=== PATIENT | male | born 1985 | race Caucasian/White ===

== ENCOUNTER 2023-03-23 13:55 | Day surgery (SDC) | payer BC ==
[~2023-03-23] VITALS: Ht 193 cm; Wt 123.8 kg
[2023-03-23 16:48] LABS: BASO # 0.1 10^3/uL (0.0-0.2); EOS % 0.4 % (0.0-3.0); HEMOGLOBIN 15.4 g/dl (13.5-17.5); LYMPH # 1.2 10^3/uL (1.5-5.0); LYMPH % 16.5 % (24.0-44.0); MEAN CORPUSCULAR HEMOGLOBIN 30.6 pg (27.0-33.0); MEAN CORPUSCULAR HGB CONC 33.5 g/dl (32.0-36.5); MEAN CORPUSCULAR VOLUME 91.3 fl (80.0-96.0); MONO # 0.6 10^3/uL (0.0-0.8); NEUTROPHILS # 5.2 10^3/uL (1.5-8.5); NEUTROPHILS % 72.5 % (36.0-66.0); PLATELET COUNT, AUTOMATED 215 10^3/uL (150-450); RED BLOOD COUNT 5.04 10^6/uL (4.30-6.10); WHITE BLOOD COUNT 7.1 10^3/uL (4.0-10.0)
[2023-03-23 17:21] LABS: AMPHETAMINES LEVEL URINE NEGATIVE (NEGATIVE); BARBITURATES URINE NEGATIVE (NEGATIVE); BENZODIAZEPINES URINE NEGATIVE (NEGATIVE); CANNABINOIDS URINE NEGATIVE (NEGATIVE); COCAINE METABOLITE URINE NEGATIVE (NEGATIVE); METHADONE URINE NEGATIVE (NEGATIVE); OPIATES URINE NEGATIVE (NEGATIVE); PHENCYCLIDINE URINE NEGATIVE (NEGATIVE)
[2023-03-23 17:22] LABS: INR 0.99; PROTHROMBIN TIME 13.3 SECONDS (12.5-14.5)
[2023-03-23 17:23] LABS: PARTIAL THROMBOPLASTIN TIME 25.5 SECONDS (24.8-34.2)
[2023-03-23 17:24] LABS: BLOOD UREA NITROGEN 15 MG/DL (9-23); CALCIUM LEVEL 8.9 MG/DL (8.5-10.1); CARBON DIOXIDE LEVEL 28 MMOL/L (20-31); CHLORIDE LEVEL 106 MMOL/L (98-107); GLOMERULAR FILTRATION RATE > 60.0 (>60); GLUCOSE, FASTING 97 MG/DL (60-100); MAGNESIUM LEVEL 2.1 MG/DL (1.8-2.4); SODIUM LEVEL 140 MMOL/L (136-145)
[2023-03-23 17:26] LABS: FREE T4 1.02 NG/DL (0.89-1.76); THYROID STIMULATING HORMONE 2.051 uIU/ML (0.55-4.78)
[2023-03-23 17:28] LABS: RSV AMPLIFICATION NEGATIVE (NEGATIVE)
[2023-03-23] MEDS ORDERED: ceFAZolin SOD 1 GM in D5W MINI-BAG PLUS 50 ML IV ONE (18:00)
[2023-03-23] MEDS ORDERED: NS 1,000 ML IV SCH (18:00)
[2023-03-23] MEDS ORDERED: ceFAZolin SOD 2 GM in IV 1 EA IV ONE (18:00)
[2023-03-23] MEDS ORDERED: MIDAZOLAM INJ 2MG/2ML VIAL As Ordered ONE (19:26)
[2023-03-23] MEDS ORDERED: fentaNYL 100 MCG/2 ML INJECTION As Ordered ONE (19:26)
[2023-03-23] MEDS ORDERED: MUPIROCIN 2% OINT 22 GM TUBE As Ordered ONE (19:26)
[2023-03-23] MEDS ORDERED: ISOVUE-300 61% 100ML VIAL As Ordered ONE (19:26)
[2023-03-23] MEDS ORDERED: LIDOCAINE 1% SDV 30ML VIAL As Ordered ONE (19:26)
[2023-03-23] MEDS ORDERED: propofoL 200 MG/20 ML VIAL As Ordered ONE ×3 (19:28→22:14)
[2023-03-23] MEDS ORDERED: LIDOCAINE 2% 100MG/5ML SDV (FOR ANES.) As Ordered ONE (19:30)
[2023-03-23] MEDS ORDERED: ceFAZolin 2 GM/D5W 50 ML IV BAG As Ordered ONE (20:21)
[2023-03-23] MEDS ORDERED: ceFAZolin 1GM VIAL As Ordered ONE (20:22)
[2023-03-23] MEDS ORDERED: propofoL 500 MG/50 ML VIAL As Ordered ONE (20:38)
[2023-03-23] MEDS ORDERED: HYDROMORPHONE HCL 0.5 MG/ 0.5 ML SYRINGE IV PRN (22:25)
[2023-03-23] MEDS ORDERED: fentaNYL 100 MCG/2 ML INJECTION IV PRN (22:25)
[2023-03-23] MEDS ORDERED: LR 1,000 ML IV SCH (22:25)
[2023-03-23] MEDS ORDERED: oxyCODONE 5MG TAB PO PRN (22:25)
[2023-03-23] MEDS ORDERED: ONDANSETRON 4MG 2ML VIAL IV PRN (22:25)
[2023-03-23 23:30] VITALS: BP 140/82; TEMP 97; O2SAT 100
[2023-03-23] MEDS: ACETAMINOPHEN TAB 650MG DOSE (2X325MG) PO PRN (23:51)
[2023-03-24] VITALS (7 sets, daily range): BP systolic 124–146; BP diastolic 60–73; TEMP 97.2–97.6; O2SAT 97–100
[2023-03-24] MEDS: ACETAMINOPHEN TAB 650MG DOSE (2X325MG) PO PRN (05:46)
[2023-03-24] MEDS ORDERED: ASCORBIC ACID 250 MG TAB PO SCH (09:00)
[2023-03-24] MEDS ORDERED: ASCO250T20 PO (10:26)
[2023-03-24] MEDS ORDERED: ACET1TAB55 PO (10:26)
== END 2023-03-24 12:54 | disposition home or self-care (01) ==
LOC: M ED 13:55 → M SDC 17:04 → M PCU 23:20 → M SDC 03-24 12:54
PROVIDERS: ATTEND Internal Medicine Cardiovascular Disease
DX: R55 Syncope and collapse (principal)
CPT/HCPCS: 33208; 71045; 71046; 76000; 80048; 80307; 83735; 84439; 84443; 85025; 85610; 85730; 87631; 93005; 93041; 94760; 99285; C1785; C1898; J0690; J2250; J3010; Q9967

== ENCOUNTER → 2025-07-10 | Outpatient (CLI) | payer BC ==
[~2025-07-10] MED LIST: ACET1TAB55 PO; ASCO250T20 PO
[2025-07-10 18:46] LABS: ALT/SGPT 54 U/L (7.0-40); AST/SGOT 36 U/L (<34); CALCIUM LEVEL 9.3 MG/DL (8.5-10.1); CARBON DIOXIDE LEVEL 30 MMOL/L (20-31); CHLORIDE LEVEL 100 MMOL/L (98-107); CHOLESTEROL LEVEL 188 MG/DL (<200); CHOLESTEROL RISK RATIO 3.28 (<5); CREATININE FOR GFR 0.85 MG/DL (0.70-1.30); GLOMERULAR FILTRATION RATE > 90.0 (>60); LDL CHOLESTEROL 104.2 MG/DL (<100); NON-HDL-C 130.8 MG/DL; POTASSIUM SERUM 4.1 MMOL/L (3.5-5.1); SODIUM LEVEL 140 MMOL/L (136-145); TRIGLYCERIDES LEVEL 133 MG/DL (<150)
== END ==
LOC: M LAB 16:37
PROVIDERS: ATTEND Physician Assistant
DX: I44.2 Atrioventricular block, complete (principal); Z13.220 Encounter for screening for lipoid disorders

== ENCOUNTER 2025-08-27 16:54 | Emergency (ER) | payer BC ==
[~2025-08-27] VITALS: Ht 183.1 cm; Wt 120.3 kg
[2025-08-27] MEDS ORDERED: NEBU1EAC80 MC ×2 (19:08→19:27)
[2025-08-27] MEDS: IPRATROPIUM 0.5 MG/ALBUTEROL 2.5 MG INH SOL UD 3 ML NEB ONE ×2 (19:10→19:40)
[2025-08-27] MEDS ORDERED: IPRA0.00 INH (19:14)
[2025-08-27] MEDS ORDERED: PRED20TA PO (19:14)
[2025-08-27] MEDS ORDERED: AZIT-12 PO (19:14)
[2025-08-27 20:18] VITALS: BP 124/64; TEMP 100.5; O2SAT 97
[2025-08-27] MEDS: ACETAMINOPHEN 500 MG TAB PO ONE (20:21)
== END 2025-08-27 20:26 | disposition home or self-care (01) ==
LOC: M ED 16:54
DX: J20.9 Acute bronchitis, unspecified (principal); F17.200 Nicotine dependence, unspecified, uncomplicated; Z95.0 Presence of cardiac pacemaker; Z79.1 Long term (current) use of non-steroidal anti-inflammatories (NSAID); Z79.52 Long term (current) use of systemic steroids; Z79.899 Other long term (current) drug therapy; Z79.2 Long term (current) use of antibiotics

== ENCOUNTER 2025-08-30 17:32 | Emergency (ER) | payer BC ==
[~2025-08-30] VITALS: Ht 185.4 cm; Wt 119.3 kg
[~2025-08-30 17:32] MED LIST changes: +AZIT-12 PO; +IPRA0.00 INH; +NEBU1EAC80 MC; +PRED20TA PO
[2025-08-30 17:34] VITALS: BP 144/80; TEMP 97.8; O2SAT 98
== END 2025-08-30 18:06 | disposition home or self-care (01) ==
LOC: M ED 17:32
DX: J20.9 Acute bronchitis, unspecified (principal); F10.10 Alcohol abuse, uncomplicated; Z95.0 Presence of cardiac pacemaker; Z79.1 Long term (current) use of non-steroidal anti-inflammatories (NSAID); Z79.899 Other long term (current) drug therapy; Z79.52 Long term (current) use of systemic steroids; Z79.2 Long term (current) use of antibiotics